=== PATIENT | male | born 1970 | race Caucasian/White ===

== ENCOUNTER 2024-08-27 06:41 | Inpatient (IN) | payer MEDICAID, OTHER ==
[~2024-08-27] VITALS: Ht 172.7 cm; Wt 80.9 kg
[2024-08-27 07:37] LABS: CHLORIDE 106 mEq/L (98-107); POTASSIUM 4.7 mEq/L (3.5-5.1); SODIUM 139 mEq/L (136-145)
[2024-08-27 07:38] LABS: CARBON DIOXIDE 25 mEq/L (21-32)
[2024-08-27 07:39] LABS: CALCIUM 8.1 mg/dL (8.7-10.4)
[2024-08-27 07:43] LABS: CREATININE 1.1 mg/dL (0.6-1.3); GLUCOSE 157 mg/dL (70-105)
[2024-08-27 07:44] LABS: UREA NITROGEN BLOOD 65 mg/dL (9-23)
[2024-08-27 07:45] LABS: ACETAMINOPHEN < 2 ug/mL (10-30); ALANINE AMINOTRANSFERASE 14 IU/L (10-49); ALBUMIN 3.3 g/dL (3.2-4.8); ASPARTATE AMINOTRANSFERASE 17 IU/L (<34)
[2024-08-27 07:46] LABS: BILIRUBIN DIRECT 0.2 mg/dL (<=3.0); BILIRUBIN TOTAL 0.7 mg/dL (0.1-1.0); PROTEIN TOTAL 5.7 g/dL (6.0-8.3)
[2024-08-27 07:50] LABS: BASOPHILS % 0.7 % (0.0-2.0); EOSINOPHILS % 2.1 % (0.0-5.0); HEMATOCRIT. 31.1 % (42.0-52.0); HEMOGLOBIN. 10.4 g/dL (14.0-18.0); LYMPHOCYTES % 24.2 % (20.0-50.0); MEAN CORPUSCULAR HEMOGLOBIN 30.2 pg (28.0-32.0); MEAN CORPUSCULAR HGB CONC 33.4 g/dL (31.0-37.0); MEAN CORPUSCULAR VOLUME 90.6 fL (80.0-94.0); MONOCYTES % 4.6 % (2.0-8.0); NEUTROPHILS % 68.4 % (40.0-76.0); PLATELET 201 x1000/uL (130-400); RED BLOOD CELL COUNT 3.43 mill/uL (4.7-6.1); RED CELL DISTRIBUTION WIDTH 12.5 % (11.6-14.6); WHITE BLOOD COUNT 7.9 x1000/uL (4.5-11.0)
[2024-08-27 07:52] LABS: ETHANOL BLOOD < 10 mg/dL (<10); TROPONIN I HIGH SENSITIVITY 122 ng/L (3.0-53)
[2024-08-27] MEDS: ENOXAPARIN 100MG/ML SYR SUBCUT ONE (11:42)
[2024-08-27] MEDS ORDERED: GUAIFENESIN 200MG/10ML SUGAR FREE UDC PO PRN (11:45)
[2024-08-27] MEDS ORDERED: DOCUSATE SODIUM 100MG CAPSULE PO PRN (11:45)
[2024-08-27] MEDS ORDERED: ACETAMINOPHEN 325MG TABLET PO PRN ×2 (11:45)
[2024-08-27] MEDS ORDERED: IPRATROPIUM/ALBUTEROL 0.5-3(2.5)MG/3ML NEB NEB PRN (11:45)
[2024-08-27] MEDS ORDERED: ZOLPIDEM TARTRATE 5MG TABLET PO PRN (11:45)
[2024-08-27] MEDS ORDERED: CLONIDINE 0.1MG TABLET PO PRN (11:45)
[2024-08-27] MEDS ORDERED: MAGNESIUM/ALUMINUM HYDROXIDE/SIMETHICONE 30ML UDC PO PRN (11:45)
[2024-08-27] MEDS ORDERED: NITROGLYCERIN 0.4MG TABLET SL SL PRN (11:45)
[2024-08-27] MEDS ORDERED: ONDANSETRON HCL 4MG/2ML INJ IV PRN (11:45)
[2024-08-27 13:34] LABS: TROPONIN I HIGH SENSITIVITY 189 ng/L (3.0-53)
[2024-08-27 14:16] LABS: IRON 237 ug/dL (65-175); TRIGLYCERIDE 146 mg/dL (0-150)
[2024-08-27 14:17] LABS: LDL CHOLESTEROL 71 mg/dL (5-100)
[2024-08-27 14:18] LABS: CHOLESTEROL 118 mg/dL (<200); HDL CHOLESTEROL 28 mg/dL (>55)
[2024-08-27 14:19] LABS: TOTAL IRON BINDING CAPACITY 272 ug/dl (250-425)
[2024-08-27 14:21] LABS: FOLIC ACID (FOLATE) SERUM > 20.00 ng/mL (>5.38)
[2024-08-27 14:23] LABS: T4 FREE 1.17 ng/dL (0.89-1.76); THYROID STIMULATING HORMONE 0.92 uIU/mL (0.55-4.78)
[2024-08-27 14:25] LABS: VITAMIN B12 SERUM 441 pg/mL (211-911)
[2024-08-27 16:15] VITALS: BP 97/57; PULSE 104; RESP 18; TEMP 36.4736
[2024-08-27 18:45] LABS: CREATINE KINASE MB FRACTION 3.9 ng/mL (0.5-3.6)
[2024-08-27 20:00] VITALS: BP_SYST 104; BP_SYST 99; BP_DIAS 56; BP_DIAS 57; PULSE 114; PULSE 115; RESP 18; RESP 20; TEMP 36.3918; TEMP 37.61412; O2SAT 96; O2SAT 97
[2024-08-27] MEDS: FAMOTIDINE 20MG TABLET PO SCH (20:39)
[2024-08-27] MEDS: KETOROLAC 15MG/ML VIAL IV PRN (20:39)
[2024-08-27 22:11] LABS: CREATINE KINASE MB FRACTION 3.5 ng/mL (0.5-3.6)
[2024-08-27 23:41] LABS: *AMPHETAMINES SCREEN URINE PRESUMPTIVE POSITIVE (NEGATIVE); *BARBITURATES SCREEN URINE NEGATIVE (NEGATIVE); *BENZODIAZEPINES SCREEN URINE NEGATIVE (NEGATIVE); *COCAINE SCREEN URINE NEGATIVE (NEGATIVE); CANNABINOID URINE SCREEN NEGATIVE (NEGATIVE); ECSTASY MDMA SCREEN URINE NEGATIVE (NEGATIVE); METHADONE URINE SCREEN NEGATIVE (NEGATIVE); OPIATES URINE SCREEN NEGATIVE (NEGATIVE); PHENCYCLIDINE URINE SCREEN NEGATIVE (NEGATIVE)
[2024-08-28] VITALS: BP 108/64; PULSE 93; RESP 18; TEMP 35.89176; O2SAT 100
[2024-08-28 04:00] VITALS: BP 105/60; PULSE 91; RESP 18; TEMP 36.28068; O2SAT 96
[2024-08-28 05:48] LABS: PROTHROMBIN TIME 10.8 sec (9.6-11.0)
[2024-08-28 06:07] LABS: CHLORIDE 105 mEq/L (98-107); POTASSIUM 4.5 mEq/L (3.5-5.1); SODIUM 139 mEq/L (136-145)
[2024-08-28 06:10] LABS: CALCIUM 9.2 mg/dL (8.7-10.4); CARBON DIOXIDE 21 mEq/L (21-32)
[2024-08-28 06:15] LABS: BASOPHILS % 0.5 % (0.0-2.0); CREATININE 1.2 mg/dL (0.6-1.3); EOSINOPHILS % 1.1 % (0.0-5.0); GLUCOSE 90 mg/dL (70-105); HEMATOCRIT. 32.1 % (42.0-52.0); HEMOGLOBIN. 10.7 g/dL (14.0-18.0); LYMPHOCYTES % 19.4 % (20.0-50.0); MEAN CORPUSCULAR HEMOGLOBIN 30.3 pg (28.0-32.0); MEAN CORPUSCULAR HGB CONC 33.3 g/dL (31.0-37.0); MEAN CORPUSCULAR VOLUME 90.8 fL (80.0-94.0); MEAN PLATELET VOLUME 9.4 fl (7.4-10.4); MONOCYTES % 8.5 % (2.0-8.0); NEUTROPHILS % 70.5 % (40.0-76.0); PLATELET 208 x1000/uL (130-400); RED BLOOD CELL COUNT 3.53 mill/uL (4.7-6.1); RED CELL DISTRIBUTION WIDTH 12.8 % (11.6-14.6); UREA NITROGEN BLOOD 48 mg/dL (9-23); WHITE BLOOD COUNT 14.3 x1000/uL (4.5-11.0)
[2024-08-28 06:17] LABS: ALANINE AMINOTRANSFERASE 14 IU/L (10-49); ALBUMIN 3.8 g/dL (3.2-4.8); ASPARTATE AMINOTRANSFERASE 21 IU/L (<34); BILIRUBIN TOTAL 0.5 mg/dL (0.1-1.0); PHOSPHORUS 3.4 mg/dL (2.5-4.9); PROTEIN TOTAL 6.6 g/dL (6.0-8.3)
[2024-08-28 08:00] VITALS: BP 106/62; PULSE 89; RESP 18; TEMP 36.72516; O2SAT 97
[2024-08-28] MEDS ORDERED: ENOXAPARIN 40MG/0.4ML SYR SUBCUT SCH (09:00)
[2024-08-28] MEDS: ENOXAPARIN 80MG/0.8ML SYR SUBCUT SCH (09:15)
[2024-08-28] MEDS: ASPIRIN 81MG EC TABLET PO SCH (09:15)
[2024-08-28 12:00] VITALS: BP 119/70; PULSE 91; RESP 18; TEMP 36.50292; O2SAT 99
[2024-08-28 16:00] VITALS: BP 107/50; PULSE 90; RESP 20; TEMP 36.28068; O2SAT 99
[2024-08-28 20:00] VITALS: BP 117/65; PULSE 80; RESP 14; TEMP 36.114; O2SAT 97
[2024-08-29] VITALS: BP 99/55; PULSE 89; RESP 14; TEMP 36.33624; O2SAT 99
[2024-08-29 04:00] VITALS: BP 102/51; PULSE 80; RESP 16; TEMP 36.114; O2SAT 99
[2024-08-29 08:00] VITALS: BP 102/51; PULSE 81; RESP 20; TEMP 36.3918; O2SAT 98
[2024-08-29 12:00] VITALS: BP 129/78; PULSE 80; RESP 20; TEMP 36.114; O2SAT 99
[2024-08-29 16:00] VITALS: BP 118/72; PULSE 78; RESP 20; TEMP 36.44736; O2SAT 100
[2024-08-29 20:00] VITALS: BP 107/47; PULSE 83; RESP 20; TEMP 37.33632; O2SAT 100
[2024-08-30] VITALS: BP 105/52; PULSE 74; RESP 18; TEMP 37.16964; O2SAT 98
[2024-08-30 04:00] VITALS: BP 107/49; PULSE 76; RESP 20; TEMP 37.11408; O2SAT 98
[2024-08-30 08:00] VITALS: BP 98/45; PULSE 78; RESP 20; TEMP 36.3918; TEMP 36.39180; O2SAT 98
[2024-08-30] MEDS ORDERED: ASPI-1406 MT (10:18)
[2024-08-30 10:25] VITALS: BP 98/45; PULSE 78; TEMP 97.5; O2SAT 98
== END 2024-08-30 12:03 | disposition home or self-care (01) | DRG 812 ==
LOC: ER 06:41 → 7WST 10:07 → EDBEDREQSVC 10:11 → EDBEDREQTM 10:11 → EDBEDREQ 10:11 → EDBEDREQSVC 13:49
PROVIDERS: ADMIT Internal Medicine; ATTEND Internal Medicine
DX: T40.2X1A Poisoning by other opioids, accidental (unintentional), initial encounter (principal); G92.8 Other toxic encephalopathy; I21.A1 Myocardial infarction type 2; E44.1 Mild protein-calorie malnutrition; E83.51 Hypocalcemia; E77.8 Other disorders of glycoprotein metabolism; D63.8 Anemia in other chronic diseases classified elsewhere; F19.10 Other psychoactive substance abuse, uncomplicated; Y92.89 Other specified places as the place of occurrence of the external cause; Z87.891 Personal history of nicotine dependence; Z91.148 Patient's other noncompliance with medication regimen for other reason; Z68.27 Body mass index [BMI] 27.0-27.9, adult; F15.90 Other stimulant use, unspecified, uncomplicated
CPT/HCPCS: 36415; 71045; 80048; 80053; 80061; 80076; 80305; 80307; 80320; 80329; 82550; 82553; 82607; 82746; 83036; 83540; 83550; 83735; 84100; 84439; 84443; 84484; 85025; 93005; 93306; 93970; 99291; J1650; J1885; G0480